=== PATIENT | male | born 1975 | race Caucasian/White ===

== ENCOUNTER 2016-09-15 06:23 | Emergency (ER) | payer OTHER ==
[2016-09-15 07:47] LABS: BASOPHIL % 0.8 % (0-2)
[2016-09-15 07:49] LABS: UA SPECIFIC GRAVITY 1.015 (1.005-1.035); microscopic required? YES; urine erythrocyte NEGATIVE (NEGATIVE)
[2016-09-15 07:56] LABS: CALCIUM 9.2 mg/dL (8.5-10.1); CARBON DIOXIDE 27.5 mmol/L (21-32); CHLORIDE SERUM 95 mmol/L (98-107); CREATININE SERUM 0.9 mg/dL (0.7-1.3); GFR1 > 60 mL/min; GLUCOSE SERUM 112 mg/dL (74-106); POTASSIUM SERUM 3.5 mmol/L (3.5-5.1); SODIUM SERUM 131 mmol/L (136-145)
[2016-09-15 08:03] LABS: ALBUMIN 3.6 g/dL (3.4-5.0); ALKALINE PHOSPHATASE 208 U/L (46-116); ALT/SGPT 233 U/L (16-63); AMYLASE 40 U/L (25-115); AST/SGOT 339 U/L (15-37); BILIRUBIN TOTAL 3.6 mg/dL (0.20-1.00); HDL CHOLESTEROL 45 mg/dL (40-60); LIPASE 195 IU/L (73-393); MAGNESIUM 1.8 mg/dL (1.8-2.4)
[2016-09-15 08:06] LABS: CHOLESTEROL 320 mg/dL (<200)
[2016-09-15 08:07] LABS: AMPHETAMINE QUAL UR NONE DETECTED (NEG <=1000)
[2016-09-15 08:23] LABS: PLATELET COUNT 157 x10^3mcL (130-400)
[2016-09-15 10:11] VITALS: BP 107/84
== END 2016-09-15 10:11 | disposition home or self-care (01) ==
LOC: ED 06:23
PROVIDERS: Emergency Medicine
DX: R17 Unspecified jaundice (principal); F10.20 Alcohol dependence, uncomplicated; I10 Essential (primary) hypertension; E78.00 Pure hypercholesterolemia, unspecified; E87.1 Hypo-osmolality and hyponatremia
CPT/HCPCS: 80307; 83880; G0480; J2060; J3411; J3475; J3490; J7030; Q0092

== ENCOUNTER 2017-09-24 20:22 | Inpatient (IN) | payer OTHER ==
[~2017-09-24] VITALS: Ht 175.3 cm; Wt 98.0 kg
[2017-09-24 21:42] LABS: BASOPHIL % 1.2 % (0-2); RED CELL DISTRIBUTION WIDTH 13.9 % (11.5-14.5)
[2017-09-24 21:43] LABS: PLATELET COUNT 88 x10^3mcL (130-400)
[2017-09-24 21:53] LABS: AMPHETAMINE QUAL UR NONE DETECTED (NEG <=1000)
[2017-09-24 21:59] LABS: CALCIUM 8.3 mg/dL (8.5-10.1); CARBON DIOXIDE 27.1 mmol/L (21-32); CHLORIDE SERUM 104 mmol/L (98-107); CREATININE SERUM 0.7 mg/dL (0.7-1.3); GFR1 > 60 mL/min; GLUCOSE SERUM 136 mg/dL (74-106); POTASSIUM SERUM 3.5 mmol/L (3.5-5.1); SODIUM SERUM 142 mmol/L (136-145)
[2017-09-24 22:04] LABS: ALBUMIN 3.9 g/dL (3.4-5.0); ALKALINE PHOSPHATASE 62 U/L (46-116); ALT/SGPT 98 U/L (16-63); AST/SGOT 97 U/L (15-37); BILIRUBIN TOTAL 0.2 mg/dL (0.20-1.00); TOTAL PROTEIN, SERUM 7.5 g/dL (6.4-8.2)
[2017-09-24 23:20] VITALS: BP 114/71
[2017-09-25 00:19] LABS: PHOSPHOROUS 3.2 mg/dL (2.5-4.9)
[2017-09-25 00:59] LABS: UA SPECIFIC GRAVITY 1.015 (1.005-1.035); microscopic required? YES; urine erythrocyte TRACE (NEGATIVE)
[2017-09-25 04:48] VITALS: BP 90/54
[2017-09-25 07:47] LABS: BASOPHIL % 1.2 % (0-2); RED CELL DISTRIBUTION WIDTH 13.9 % (11.5-14.5)
[2017-09-25 08:01] LABS: CARBON DIOXIDE 25.3 mmol/L (21-32); CHLORIDE SERUM 107 mmol/L (98-107); CREATININE SERUM 0.6 mg/dL (0.7-1.3); GFR1 > 60 mL/min; GLUCOSE SERUM 80 mg/dL (74-106); POTASSIUM SERUM 3.9 mmol/L (3.5-5.1); SODIUM SERUM 144 mmol/L (136-145)
[2017-09-25 08:17] VITALS: BP 92/53
[2017-09-25 08:21] LABS: PLATELET COUNT 77 x10^3mcL (130-400)
[2017-09-25 08:51] VITALS: Ht 175.3 cm; Wt 98.0 kg
[2017-09-25 12:46] VITALS: BP 125/75
[2017-09-25 17:08] VITALS: BP 127/79
[2017-09-25 20:58] VITALS: BP 132/76
[2017-09-26 05:50] VITALS: BP 132/73
[2017-09-26 07:43] LABS: CARBON DIOXIDE 25.3 mmol/L (21-32); CHLORIDE SERUM 100 mmol/L (98-107); CREATININE SERUM 0.6 mg/dL (0.7-1.3); GFR1 > 60 mL/min; GLUCOSE SERUM 84 mg/dL (74-106); POTASSIUM SERUM 3.4 mmol/L (3.5-5.1); SODIUM SERUM 136 mmol/L (136-145)
[2017-09-26 08:07] LABS: BASOPHIL % 1.1 % (0-2); RED CELL DISTRIBUTION WIDTH 13.5 % (11.5-14.5)
[2017-09-26 08:14] LABS: PLATELET COUNT 82 x10^3mcL (130-400)
[2017-09-26 10:11] VITALS: BP 137/80
[2017-09-26] MEDS ORDERED: LEVAQUIN750 MG PO (12:18)
[2017-09-26] MEDS ORDERED: LAC PO (12:19)
[2017-09-26] MEDS ORDERED: LIB25 PO (12:21)
[2017-09-26] MEDS ORDERED: PROZ20 PO (12:22)
[2017-09-26] MEDS ORDERED: THI100 PO (12:23)
[2017-09-26] MEDS ORDERED: FOL1 PO (12:23)
[2017-09-26] MEDS ORDERED: THERAGRAN-M1 TA4 PO (12:24)
[2017-09-26 12:57] VITALS: BP 137/80
[2017-09-26 13:59] VITALS: BP 143/83
== END 2017-09-26 13:55 | disposition home or self-care (01) | DRG 775 ==
LOC: ED 20:22 → DU 22:26
PROVIDERS: Emergency Medicine; Student in an Organized Health Care Education/Training Program
DX: F10.229 Alcohol dependence with intoxication, unspecified (principal); F10.239 Alcohol dependence with withdrawal, unspecified; G92 Toxic encephalopathy; E83.51 Hypocalcemia; D69.6 Thrombocytopenia, unspecified; I10 Essential (primary) hypertension; Y90.9 Presence of alcohol in blood, level not specified; N39.0 Urinary tract infection, site not specified; E78.00 Pure hypercholesterolemia, unspecified; E87.6 Hypokalemia; F32.9 Major depressive disorder, single episode, unspecified; Z91.14 Patient's other noncompliance with medication regimen; Z80.3 Family history of malignant neoplasm of breast
CPT/HCPCS: G0480; J1885; J1956; J7030; Q0092

== ENCOUNTER 2018-12-27 23:33 | Inpatient (IN) | payer OTHER ==
[~2018-12-27] VITALS: Ht 175.3 cm; Wt 90.7 kg
[~2018-12-27 23:33] MED LIST: FOL1 PO; LAC PO; LEVAQUIN750 MG PO; LIB25 PO; PROZ20 PO; THERAGRAN-M1 TA4 PO; THI100 PO
--- NOTE | 2018-12-27 23:52 | NUR ---
PT BROUGHT TO ED BY [facility] AND [facility] S/O NEW ONSET SEIZURE. PER MEDICS, PT WAS AT HOME WHEN HIS MOTHER HEARD A LOUD "THUMP" WENT INTO THE ROOM TO FIND THE PATIENT ON THE FLOOR EXPERIENCING TONIC CLONIC MOVEMENT. PT WAS POST ICTAL WHEN MEDICS ARRIVED, AOX3 AND GCS OF 14. PT REMAINS AOX3 AT THIS TIME. PT UNABLE TO GIVE THE CORRECT MONTH AND YEAR, PT REORIENTED APPROPRIATELY. EKG PERFORMED BY MEDICS SHOWED SINUS TACHYCARDIA WITH HR IN 150'S. PT PLACED ON FULL CM, PT DENIES PAIN AT THIS TIME.
--- NOTE | 2018-12-27 23:53 | NUR ---
PT NOTED WITH TREMORS TO FACE AND EXTREMITIES. PT STATES THAT HE USUALLY DRINKS X4-5 TALL CANS OF BEER A DAY AND TODAY HE ONLY DRANK 1. PT STATES "I JUST WANT TO STOP" WHEN ASKED WHY HE DRANK LESS TODAY.
--- NOTE | 2018-12-28 00:25 | NUR ---
PT ASSISTED TO BEDSIDE COMMODE DUE TO PT REQUEST TO USE RESTROOM. PT EXPERIENCED A LIQUID BRIGHT GREEN BOWEL MOVEMENT. PT CLEANED AND ASSISTED BACK INTO BED.
--- NOTE | 2018-12-28 00:40 | NUR ---
ADMINISTERED 4MG IVP ZOFRAN FOR EPISODE OF VOMITING PER DR PENN VERBAL ORDER.
--- NOTE | 2018-12-28 01:15 | NUR ---
PT MEDICATED PER ORDER, PT VERBALIZED UNDERSTANDING OF MEDICATION PRIOR TO ADMINISTRATION. PT IS AWAKE AND ALERT, ANSWERING QUESTION APPROPRIATELY, RESP E/U, WILL CONTINUE TO MONITOR. SEIZURE PRECAUTIONS IN PLACE.
[2018-12-28 01:36] LABS: BASOPHIL % 0.2 % (0-2); RED CELL DISTRIBUTION WIDTH 14.2 % (11.5-14.5)
[2018-12-28 01:38] LABS: PLATELET COUNT 39 x10^3mcL (130-400)
[2018-12-28 01:47] LABS: CALCIUM 8.6 mg/dL (8.5-10.1); CARBON DIOXIDE 24.4 mmol/L (21-32); CHLORIDE SERUM 101 mmol/L (98-107); CREATININE SERUM 0.7 mg/dL (0.7-1.3); GFR1 > 60 mL/min; GLUCOSE SERUM 130 mg/dL (74-106); POTASSIUM SERUM 3.9 mmol/L (3.5-5.1); SODIUM SERUM 140 mmol/L (136-145)
[2018-12-28 01:52] LABS: ALBUMIN 3.8 g/dL (3.4-5.0); ALKALINE PHOSPHATASE 116 U/L (46-116); ALT/SGPT 158 U/L (16-63); AST/SGOT 233 U/L (15-37); BILIRUBIN TOTAL 0.99 mg/dL (0.20-1.00); MAGNESIUM 1.5 mg/dL (1.8-2.4); PHOSPHOROUS 2.6 mg/dL (2.5-4.9); TOTAL PROTEIN, SERUM 7.8 g/dL (6.4-8.2)
--- NOTE | 2018-12-28 02:16 | NUR ---
PT RESTING WITH EYES CLOSED AT THIS TIME. RESP EVEN AND UNLABORED, CHEST RISE AND FALL NOTED, NO ACUTE DISTRESS NOTED. PT ON FULL CM IN VIEW OF NURSE'S STATION. TREMORS HAVE DECREASED AT THIS TIME.
--- NOTE | 2018-12-28 02:53 | NUR ---
PT DENIES TAKING HOME MEDICATIONS.
[2018-12-28 02:55] LABS: microscopic required? YES; urine erythrocyte 2+ (NEGATIVE)
[2018-12-28 02:56] LABS: AMPHETAMINE QUAL UR NONE DETECTED (See below)
[2018-12-28 03:03] LABS: CHOLESTEROL/HDL RATIO 1.6
--- NOTE | 2018-12-28 03:03 | NUR ---
PT REPORT CALLED TO CHRISTIAN SEE TO ASSUME PT CARE.
[2018-12-28 03:08] LABS: T3 TOTAL 0.91 ng/mL
[2018-12-28 03:14] LABS: FREE T4 0.72 ng/dL (0.76-1.46)
--- NOTE | 2018-12-28 03:20 | NUR ---
PT TRANSFERRED TO [facility] BY [facility] BY MYSELF AND [facility] EMT. PT ON FULL CM FOR TRANSPORT. PT ACCEPTED BY CHRISTIAN SEE TO ASSUME PT CARE. PT AOX3 RESP EVEN AND UNLABORED, NO ACUTE DISTRESS NOTED.
[2018-12-28 03:29] VITALS: BP 123/84
[2018-12-28 04:08] LABS: FREE THYROXINE INDEX 1.3 ug/dL (1.4-4.5); T4(THYROXINE) 3.6 ug/dL (4.7-13.3)
--- NOTE | 2018-12-28 04:08 | NUR ---
RECEIVED FROM ER DX SEIZURE AND ACUTE ALCOHOL WITHDRAWAL, FACILITATED TO ASSIGNED BED, ADMISSION CARE PROT RENTERED, ORIENTED TO ROOM SET UP, PT AWAKE DROWSY VERBAL ANSWERS SOME QUESTION APPROPRIATELY, DENIES PAIN, ADMISSION ASSESSMENT DONE, MD AWARE OF THE ADMISSION WITH ORDERS, IVF NS STARTED ORDERED, 150CC/HR IV ACCESS @ RW PATENT NON INFIL, SZ PREC POSTED PADS AT SIDERAILS APPLIED, SCD'S FOR DVT PROPHYLAXIS, PT DENIES PAIN, HOOKED TO TELE #1 HR >120'S ASYMTOMATIC, WILL CONT TO MONITOR.
--- NOTE | 2018-12-28 04:14 | NUR ---
MRSA SCREEN INITIATED, SWAB BOTH NARES, SPEC SENT TO LAB.
--- NOTE | 2018-12-28 04:41 | NUR ---
MG RIDER 2GMS INFUSING FOR MG LEVEL OF 1.5, PT SLEEPING AT THIS TIME.
--- NOTE | 2018-12-28 06:28 | NUR ---
PT AWAKE COOPERATIVE AND VERBAL, HAS FINE TREMORS BUE, NO SEIZURE ACTIVITY, DENIES PAIN, DUE MEDS GIVEN, IVF INFUSING WELL, WILL CONT TO MONITOR AND WILL ENDORSE TO INCOMING SHIFT FOR F/U CARE.
[2018-12-28 06:35] LABS: CALCIUM 8.5 mg/dL (8.5-10.1); CARBON DIOXIDE 22.9 mmol/L (21-32); CHLORIDE SERUM 103 mmol/L (98-107); CREATININE SERUM 0.5 mg/dL (0.7-1.3); GFR1 > 60 mL/min; GLUCOSE SERUM 89 mg/dL (74-106); MAGNESIUM 2.2 mg/dL (1.8-2.4); PHOSPHOROUS 2.8 mg/dL (2.5-4.9); POTASSIUM SERUM 3.5 mmol/L (3.5-5.1); SODIUM SERUM 141 mmol/L (136-145)
--- NOTE | 2018-12-28 06:36 | NUR ---
DR WARD AWARE PT DOESNT HAVE DIET ORDER, HR WENT UP TO 150'S WHEN PT TRIED TO GET OOB ASKING FOR WATER, ASYMTOMATIC, EKG COMPLETED, PT DENIES PAIN AT THIS TIME, CONT TO MONITOR.
[2018-12-28 07:16] LABS: RED CELL DISTRIBUTION WIDTH 13.9 % (11.5-14.5)
--- NOTE | 2018-12-28 07:51 | NUR ---
RECEIVED PATIENT FROM MAYI BLEDSOE. PATIENT IN BED RESTING, A/OX4. NO COMPLAINTS OF PAIN OR DIZZINESS BUT PATIENT HAS SLIGHT TREMORS IN HANDS. STATES THAT HE FEELS COLD. EXTRA BLANKET GIVEN TO PATIENT. NO SIGNS OF SEIZURE ACTIVITY, WILL CONTINUE TO MONITOR FOR DTS. CALL LIGHT IN REACH AT THIS TIME.
[2018-12-28 08:20] VITALS: BP 132/91
[2018-12-28 11:46] LABS: BAND NEUTROPHIL 1 % (0-10); BASOPHIL 0 % (0-2); MONOCYTE 6 % (0-7); SEGMENTED NEUTROPHILS 86 % (37-75)
[2018-12-28 11:47] LABS: PLATELET MORPHOLOGY PLATELETS DECREASED; rbc morphology (normal/abnorm) ABNORMAL (NORMAL)
--- NOTE | 2018-12-28 12:00 | NUR ---
PATIENT WITH PT BOB. STATES PATIENT ABLE TO AMBULATE UP TO 200 FT. NOTIFIED TAHT PATIENT HR UP TO 150s. PATIENT DENIES CHEST PAIN, SEATED UP TO BED. CALL LIGHT IN REACH,
[2018-12-28 12:44] VITALS: BP 117/84
--- NOTE | 2018-12-28 13:12 | NUR ---
PATIENT SEATED IN BED, EATING LUNCH TRAY. [facility] STATES PATIENT HR UP TO 150s DURING MEAL. NO SIGNS OF SZ ACTIVITY AT THIS TIME. WILL CONTINUE TO MONITOR HR. CALL LIGHT IN REACH.
--- NOTE | 2018-12-28 14:41 | NUR ---
PATIENT HR ELEVATED DURING AMBULATION AND GOING UP TO BEDSIDE COMMODE. PATIENT DENIES ANY CHEST PAIN OR DISCOMFORT, DENIES DIZZINESS, SS WARM PINK & DRY. SCHEDULED PO LIBRIUM ADMINISTERED. WILL NOTIFY DR WARD AND CONTINUE TO MONITOR. CALL LIGHT IN REACH AT THIS TIME, BED ALARM ON.
[2018-12-28 14:43] LABS: PLATELET COUNT 33 x10^3mcL (130-400)
--- NOTE | 2018-12-28 14:49 | NUR ---
DR WARD IN TO CHECK ON PATIENT ABOUT TACHYCARDIA. DR WARD STATES TO GIVE PATIENT PRN ATIVAN PO. CONTINUES TO DENY CHEST PAIN OR DIZZINESS. CALL LIGHT IN REACH.
[2018-12-28 16:55] VITALS: BP 116/86
--- NOTE | 2018-12-28 18:02 | NUR ---
PATIENT HR HAS FINALLY NORMALIZED. NOW AT 90-92 BPM. PATIENT IN BED SLEEPING AT THIS TIME. NO SIGNS OF SZ ACTIVITY. WILL ENDORSE TO ONCOMING NURSE. CALL LIGHT IN REACH.
--- NOTE | 2018-12-28 19:38 | NUR ---
PT RECIEVED FROM DAY NURSE. PT RESTING COMFORTABLY IN BED. DENIES PAIN AT THIS TIME. PT ON TELE #1, SINUS TACH. NO S/S OF N/V OR DIZZINESS. NO SOB ON RA. ACTIVE BOWEL SOUNDS, LAST BM 12/28. RW IV, INTACT AND INFUSING. CALL LIGHT WITHIN REACH. BED AT LOWEST POSITION. WILL CONTINUE TO MONITOR.
[2018-12-28 20:57] VITALS: BP 141/87
--- NOTE | 2018-12-28 22:33 | NUR ---
IV REMOVED BY PT. SKIN DRY AND INTACT. NEW IV PLACED IN LFA. FLUIDS RESUMED AT 150 ML/HR.
--- NOTE | 2018-12-28 23:44 | NUR ---
PT. SITTING UP IN BED. HR 190, GAVE ATIVAN PRN. PT PULLED OFF CM PATCHES. REPLACED PATCHES AND TELE MONITOR. PT IS NOW TELE NUMBER 27. NO SOB, ON RA. DENIES DIZZINESS, N/V, OR PALPATATIONS. CALL LIGHT WITHIN REACH. BED AT LOWEST POSTION. WILL CONTINUE TO MONITOR.
--- NOTE | 2018-12-29 00:10 | NUR ---
PT CONFUSED, REMOVED IV. UNSTEADY GAIT. HR 177. PAGED DR MADISON TO NOTIFY OF CHANGE IN STATUS. WILL MONITOR AND AWAIT RETURN CALL FROM
--- NOTE | 2018-12-29 01:04 | NUR ---
DR. MADISON REPORTED TO BEDSIDE. NEW ATIVAN ORDERS PLACED. NEW IV PLACED ON RIGHT FOREARM. PT REMAINS CONFUSED AND UNSTEADY. BED ALARM ACTIVE. BED AT LOWEST POSITION. WILL CONTINUE TO MONITOR.
--- NOTE | 2018-12-29 03:21 | NUR ---
PT. HALLUCINATING, "I SEE MY FRIENDS AND THEY'RE TELLING ME TO GO.". HR MAINTAINED IN THE 130S-140S. MADE AWARE. BED ALARM ACTIVE. CALL LIGHT WITHIN REACH. BED IN LOWEST POSITION. WILL CONTINUE TO MONITOR.
--- NOTE | 2018-12-29 03:39 | NUR ---
PT. OUT OF BED, CONTINUING TO HALLUCINATE. HR IN THE 140S. DR. MADISON AT BEDSIDE. PT. TO BE TRANSFERED TO ICU PER DRS ORDERS.
[2018-12-29 04:00] VITALS: BP 127/86; BP 148/80
--- NOTE | 2018-12-29 04:00 | NUR ---
RECEIVED PT TRANSFER FROM [address] [place] [id number], RECEIVED REPORT FROM MAYI NAVARRETE AND MIKA SEE, ACCOMPANIED BY THEM. PT TRANSFERRED TO ICU BED 5, ATTACHED TO FULL MEDICAL STAFF SERVICES COORDINATOR, AND CONTINUOUS PULSE OXIMETRY. RECEIVED PT AOX4 ABLE TO RESPOND TO COMMANDS AND MAKE NEEDS KNOWN, PUPILS 4MM BRISK RESPONSE TO LIGHT B/L, SPEECH CLEAR. LUNG SOUDNS CLEAR B/L, CHEST RISE/FALL SYMMETRIC, E/U BREATHING, NO ACUTE RESP DISTRESS, DENIES SOB. TRACHEA MIDLINE, NO DRAINAGE TO EENT. S1/S2 SOUNDS HEARD, CHEST WALL STABLE, PT DENIES CHEST PAIN. ACTIVE BOWEL SOUNDS X4 QUADRANTS, ABD SOFT/ROUND, NO BM. PT ABLE TO VOID, CLEAR YELLOW URINE, USES BEDSIDE URINAL. NO PENILE DISCHARGE NOTED, REDNESS NOTED TO SCROTUM AND INNER THIGHS NEAR PERIAREA. SKIN COLOR CONSISTENT WITH ETHNICITY, PULSES MODERATE X4 EXTREMITIES, CAP REFILL <3 SECONDS X4 EXTREMITES. NO EDEMA. SKIN WARM/DRY TO TOUCH, IV 22GAUGE TO RIGHT FOREARM, SALINE LOCKED, PATENT, NO S/S OF INFILTRATION, DRESSING CDI. PT IN CLEAR VIEW OF NURSING STATION, PT DENIES ANY HALLUCINATIONS, HAS NOTED TREMORS TO HANDS, COOPERATIVE WITH CARE BUT APPEARS TENSE AT THIS TIME. BED AT LOWEST SETTING, CALL LIGHT WITHIN REACH, SZ PADS IN PLACE, WILL CONT TO MONITOR.
--- NOTE | 2018-12-29 04:06 | NUR ---
NS IV INTIATED @ 150 ML/HR
--- NOTE | 2018-12-29 05:10 | NUR ---
PT STATING HE WAS TALKING TO A PERSON NAMED YULISA INSIDE THE ROOM. REORIENTED PT AT THIS TIME ON HOSPITAL STAY AND THAT NO ONE IS IN THE ROOM.
[2018-12-29 05:35] LABS: BASOPHIL % 0.3 % (0-2)
[2018-12-29 05:39] LABS: ALBUMIN 3.5 g/dL (3.4-5.0); ALKALINE PHOSPHATASE 109 U/L (46-116); ALT/SGPT 111 U/L (16-63); AST/SGOT 120 U/L (15-37); BILIRUBIN TOTAL 1.38 mg/dL (0.20-1.00); CALCIUM 9.2 mg/dL (8.5-10.1); CARBON DIOXIDE 25.4 mmol/L (21-32); CHLORIDE SERUM 100 mmol/L (98-107); CREATININE SERUM 0.6 mg/dL (0.7-1.3); GFR1 > 60 mL/min; GLUCOSE SERUM 79 mg/dL (74-106); MAGNESIUM 1.9 mg/dL (1.8-2.4); PHOSPHOROUS 2.1 mg/dL (2.5-4.9); POTASSIUM SERUM 3.2 mmol/L (3.5-5.1); SODIUM SERUM 139 mmol/L (136-145); TOTAL PROTEIN, SERUM 7.2 g/dL (6.4-8.2)
[2018-12-29 05:43] LABS: PLATELET COUNT 32 x10^3mcL (130-400)
--- NOTE | 2018-12-29 06:05 | NUR ---
PT REMOVING EQUIPMENT AND GOWN AT THIS TIME. EDUCATED PT ON HOSPITAL STAY AND EQUIPMENT FOR HOSPITAL USE.
--- NOTE | 2018-12-29 06:15 | NUR ---
PT TENSE AT THIS TIME, STATING "I NEED TO GO HOME AND GET MY KEYS", REORIENTED PATIENT ON HOSPITAL STAY AND PLAN OF CARE, PT VERBALIZES "OK".
--- NOTE | 2018-12-29 06:20 | NUR ---
PT ATTEMPTING TO JUMP OUT OF BED, REMOVING EQUIPMENT AND GOWN AT THIS TIME. PT STATING "I HAVE TO PUT MY CLOTHES BACK ON AND GO HOME". EDUCATED PT ON HOSPITAL STAY AND REORIENTED PT. PT APPEARS TENSE AND UNCOOPERATIVE WITH STAFF ON GOING BACK TO BED.
--- NOTE | 2018-12-29 06:30 | NUR ---
PT BEING AGGRESSIVE WITH NURSING STAFF, STATING "I HAVE TO GO HOME AND GET MY STUFF AND MY KEYS" AND ATTEMPTING TO GET OUT OF BED. REORIENTED PATIENT ON HOSPITAL STAY AND POC. PT UNCOOPERATIVE WITH GOING BACK INTO BED. DR. MADISON AT BEDSIDE, OK TO INITIATE RESTRAINTS AT THIS TIME AND MEDICATION ORDERED AND WILL BE GIVEN PER EMAR.
--- NOTE | 2018-12-29 07:10 | NUR ---
GAVE REPORT TO SHABBIR RN, MAYI PADILLA. UPDATES PROVIDED, QUESTIONS ANSWERED.
[2018-12-29 07:45] VITALS: BP 131/95
[2018-12-29 07:46] VITALS: Ht 175.3 cm; Wt 90.7 kg
--- NOTE | 2018-12-29 08:40 | NUR ---
ATIVAN 4MG IVP GIVEN FOR AGITATION AND HR 137. RESP EVEN AND UNLABORED. NO RESP DISTRESS NOTED. PT DENIES CHEST PAIN OR PALPITATIONS. HOB 30 DEGREES. BUE SOFT RESTRAINTS IN PLACE, SITE WNL, NO REDNESS, SWELLING, SKIN INTACT, CAP REFILL < 3 SECONDS. 2 FINGERS SPACE NOTED. DUE MEDS GIVEN CRUSHED. WILL CONTINUE TO MONITOR.
--- NOTE | 2018-12-29 08:52 | NUR ---
DR. WARD MADE AWARE PATIENT'S CARDIAC RHYTHM LOOKS A. FIB WITH RVR WITH RATE RANGING FROM 120-180'S. EKG TO BE ORDERED. NIBP STABLE AT 120/66, MAP 96. PATIENT IS CURRENTLY SLEEPING AT THIS TIME.
--- NOTE | 2018-12-29 08:59 | NUR ---
PATIENT RESTLESS, AND ATTEMPTING TO GET OUT OF BED AND RESTRAINTS. PATIENT STATED "I AM TRYING TO FIGURE OUT WHAT IS GOING ON". PATIENT EDUCATED ON PERSON, PLACE AND TIME. WILL CONTINUE TO MONITOR.
--- NOTE | 2018-12-29 09:03 | NUR ---
PATIENT RESTLESS, AND ATTEMPTING TO GET OUT OF BED AND RESTRAINTS. PATIENT STATED " I AM TRYING TO FIGURE OUT WHAT IS GOING ON". PATIENT REORIENTED TO PERSON, PLACE AND TIME. WILL CONTINUE TO MONITOR.
--- NOTE | 2018-12-29 09:18 | NUR ---
PATIENT URINATED IN THE BED. LINENS CHANGED, PATIENT CLEANSED. WILL CONITNUE TO MONITOR.
--- NOTE | 2018-12-29 09:40 | NUR ---
DR. TAO AND MEDICAL TEAM MET WITH PT AND DISCUSSED POC. PT CONFUSED AND UNABLE TO PARTICIPATE. REPORTED TO DR. WARD k+ = 3/2 AND PHOS = 2.1. DR. WARD REVIEWED PT'S RECENT EKG AND STATED AFIB IS DUE TO PT BEING IN WITHDRAWELS. NO NEW ORDERS AT THIS TIME.
--- NOTE | 2018-12-29 09:45 | NUR ---
PATIENT ROUNDS WITH DR. TAO AND RESIDENTS. CHARGE NURSE AND PRIMARY NURSE AT BEDSIDE. UPDATES PROVIDED AND POC DISCUSSED.
--- NOTE | 2018-12-29 10:01 | NUR ---
ATIVAN 4MG IVP FOR ANXIETY AND HR 140. RESP EVEN AND UNLABORED. NO RESP DISTRESS NOTED. REMAINS ON R/A. PT ABLE TO REMOVE HAND FROM SOFT WRIST RESTRAINTS. VELCO RESTRAINT APPLIED WITH NOTED 2 FINGER LENGTH BETWEEN RESTRAINT AND SKIN. SKIN BELOW RESTRAINT NOTED TO BE INTACT WITH NO REDNESS OR SWELLING NOTED. CAP REFILL < 3 SECS. PT NOTED WITH FREQUENT PERIODS OF INCONTINENCE OF URINE. CONDOM CATH APPLIED. PT TOLERATED PROCEDURE WELL. HOB 30 DEGREES. WILL CONTINUE TO MONITOR.
--- NOTE | 2018-12-29 10:22 | NUR ---
PT IS AAAOX1 TO SELF, CONFUSED, HALLUCINATING. VERBALLY RESPONSIVE. CAN NOT MAKE NEEDS KNOWN. ABLE TO FOLLOW SIMPLE COMMANDS. UNABLE TO ASSESS FOR H/A OR DIZZINESS. PERRLA = 4MM. RESP EVEN AND UNLABORED. LUNG SOUNDS CTA BILATERALLY. ON R/A. TELE [address] READING SINUS TACH. DENIES CHEST PAIN OR PALPITATIONS. ABDOMEN SOFT, NONDISTENDED, NONTENDER. BOWEL SOUNDS ACTIVE X4. NO N/V NOTED. PT REFUSED TO EAT BREAKFAST. PERIPHERAL PULSES PALPABLE X4. NO EDEMA NOTED. CAP REFILL <3. SKIN CDI AND CONSISTENT WITH ETHNICITY. PT ON BUE SOFT WRIST RESTRAINTS WITH 2 FINGER SPACES BETWEEN PT'S WRIST AND RESTRAINT. SITE WNL. NO REDNESS OR SWELLING. SKIN INTACT. CAP REFILL <3. IVF RUNNING TO RFA, SITE WNL, NO S/S OF INFECTION OR INFILTRATION NOTED. HOB 30 DEGREES. SEIZURE PRECAUTIONS IN PLACE. FALL PRECAUTIONS MAINTAINED. BED IN LOWEST POSITION. CALL LIGHT WITHIN REACH. WILL CONTINUE TO MONITOR.
[2018-12-29 12:20] VITALS: BP 115/73
--- NOTE | 2018-12-29 13:15 | NUR ---
ATIVAN 4MG IVP GIVEN FOR AGITATION AND HR 181. RESP EVEN AND UNLABORED. NO RESP DISTRESS. PT AAOX1, CONFUSED. DOES NOT RESPOND TO QUESTIONS APPROPRIATELY. DUE MEDS GIVEN CRUSHED. PT REFUSED LUNCH. PT ACCEPTED SIPS OF WATER. VELCRO WRIST RESTRAINTS IN PLACE TO BUE. SITE WNL, NO REDNESS OR SWELLING. SKIN INTACT. CAP REFILL <3. WILL CONTINUE TO MONITOR.
--- NOTE | 2018-12-29 13:42 | NUR ---
PAGED DR. WARD TO REPORT PT'S HR TRENDING BETWEEN 135 - 180s. AWAITING CALL BACK.
--- NOTE | 2018-12-29 13:45 | NUR ---
REPORTED TO DR. WARD PT HR TRENDING AT 140-180s. DR. WARD STATED HE WILL ORDER A CARDIZEM IVP.
--- NOTE | 2018-12-29 14:15 | NUR ---
DILTIAZEM 10MG IVP GIVEN FOR INCREASED HR 130-180s. PT HR 160 AT THIS TIME. WILL CONTINUE TO MONITOR.
--- NOTE | 2018-12-29 14:40 | NUR ---
PT GIVEN CARDIZEM, HR TRENDING IN 140'S. PT DENIES C/P. WILL CONTINUE TO MONITOR.
--- NOTE | 2018-12-29 17:25 | NUR ---
REPORTED TO DR. WARD THAT THE PT HAS PERIANAL AND LOWER BUTTOCKS REDNESS. DR. WARD STATED HE WILL ORDER NYSTATIN FOR THE PT. PT MADE AWARE OF NEW ORDER.
--- NOTE | 2018-12-29 17:50 | NUR ---
CARDIZEM GIVEN AT THIS TIME. SEE EMAR. WILL CONTINUE TO MONITOR.
--- NOTE | 2018-12-29 18:20 | NUR ---
PT AAOX2 TO PERSON AND PLACE. PT DENIES C/P AND PRESSURE. MONITOR [address] READING AFIB, HR 154. ATIVAN 4 MG IVP GIVEN FOR AGITATION. RESP EVEN AND UNLABORED. ON R/A. IVF RUNNING TO RFA. SITE WNL. COVERED WITH CDI DRESSING. BUE VELCRO RESTRAINTS IN PLACE WITH 2 FINGER WIDTH SPACE BETWEEN PT. SITE WNL. NO REDNESS OR SWELLING, CAP REFILL <3 SECS. DENIES PAIN AND DISCOMFORT. CALL LIGHT WITHIN REACH. WILL ENDORSE ALL CARE TO NOC RN.
--- NOTE | 2018-12-29 19:05 | NUR ---
GROUP REPORT GIVEN TO MAYI ARROYO, AND MAYI DIXON. ALL QUESTIONS ANSWERED.
[2018-12-29 19:20] VITALS: BP 124/83
--- NOTE | 2018-12-29 19:20 | NUR ---
PT STATING "IM REJI KICK THAT GUYS ASS IN THE CORNER". REORIENTED PATIENT THAT NO ONE IS IN THE ROOM BESIDE MYSELF.
--- NOTE | 2018-12-29 21:10 | NUR ---
PLACED CONDOM CATHETER ON TO PT'S PENIS AT THIS TIME AND BAG DRAINING TO GRAVITY.
--- NOTE | 2018-12-29 21:15 | NUR ---
FOUND CONDOM CATHETER RIPPED AT THIS TIME AND BAG ON FLOOR. DR. HERNÁNDEZ MADE AWARE OF PT INCONTIENT AND MULTIPLE ATTEMPTS OF CONDOM CATHETER PLACED ON PT. PER DR. HERNÁNDEZ OK TO INSERT DOBSON CATETHER.
--- NOTE | 2018-12-29 21:20 | NUR ---
DOBSON CATHETER INITIATED USING STERILE TECHNIQUE. APPROX 300 CC IN THE BAG POST INSERTION. WILL CONTINUE TO MONITOR.
--- NOTE | 2018-12-29 22:38 | NUR ---
PT AGITATED AND RESTLESS ATTEMPTING TO GET OUT OF BED HITTING ARMS AGAINST SIDE RAILS AND KICKING LEGS AGAINST THE BED. PT STATING "GET THESE BAGS OFF OF MY LEGS". REORIENTED PT TO HOSPITAL SETTING. WILL ADMINISTER ATIVAN PER EMAR
[2018-12-29 23:08] VITALS: BP 137/78
[2018-12-30 03:05] VITALS: BP 134/83
--- NOTE | 2018-12-30 04:00 | NUR ---
PT ATTEMPTING TO PULL OUT DOBSON CATHETER, REORIENTATION PROVIDED BUT UNEFFECTIVE. PT REMAINS CONFUSED AND STATING "I SEE CATS IN THIS ROOM". PT HITTING FEET AGAINST BED AND SIDE RAIL, DR. MADISON AT BEDSIDE, PER DR. MADISON OK TO PLACE PT ON 4 POINT RESTRAINTS. BLE RESTRAINTS PLACED ON PATIENT AT THIS TIME, SKIN/PULSE WNL WITH 2 FINGER WIDTH SPACE PROVIDED.
--- NOTE | 2018-12-30 04:44 | NUR ---
HOUSE COORDINATOR CLAIR AT BEDSIDE FOR BLOOD DRAW.
[2018-12-30 05:01] LABS: RED CELL DISTRIBUTION WIDTH 14.1 % (11.5-14.5)
[2018-12-30 05:06] LABS: BASOPHIL % 0 % (0-2); PLATELET COUNT 43 x10^3mcL (130-400)
[2018-12-30 05:26] LABS: ALBUMIN 3.6 g/dL (3.4-5.0); ALKALINE PHOSPHATASE 100 U/L (46-116); ALT/SGPT 108 U/L (16-63); AST/SGOT 126 U/L (15-37); BILIRUBIN TOTAL 1.32 mg/dL (0.20-1.00); CALCIUM 9.4 mg/dL (8.5-10.1); CARBON DIOXIDE 22.5 mmol/L (21-32); CHLORIDE SERUM 104 mmol/L (98-107); CREATININE SERUM 0.8 mg/dL (0.7-1.3); GFR1 > 60 mL/min; GLUCOSE SERUM 67 mg/dL (74-106); MAGNESIUM 1.6 mg/dL (1.8-2.4); PHOSPHOROUS 2.4 mg/dL (2.5-4.9); POTASSIUM SERUM 3.2 mmol/L (3.5-5.1); SODIUM SERUM 142 mmol/L (136-145); TOTAL PROTEIN, SERUM 7.2 g/dL (6.4-8.2)
--- NOTE | 2018-12-30 05:55 | NUR ---
DR. MADISON MADE AWARE OF PT'S POTASSIUM OF 3.2, MAG OF 1.6 AND PTS GLUCOSE OF 67. PROVIDED PATIENT WITH 2 CUPS OF APPLE JUICE BUT PT REFUSES TO EAT FOOD AT THIS TIME. DR. MADISON MADE AWARE.
--- NOTE | 2018-12-30 06:25 | NUR ---
DR. WARD AT BEDSIDE FOR ASSESSMENT. UPDATES PROVIDED, QUESTIONS ANSWERED.
--- NOTE | 2018-12-30 07:10 | NUR ---
GAVE GROUP REPORT TO KWASI RN, ANGELIKA RN AND SAQIB SEE. UPDATES GIVEN, QUESTIONS ANSWERED.
[2018-12-30 07:30] VITALS: BP 130/93; BP 137/95
--- NOTE | 2018-12-30 07:30 | NUR ---
PATIENT AWAKE BUT ORIENTED TO PERSON AND PLAY ONLY WITH CONFUSION AND HALLUCINATION. PATIENT COMMUNICATES WITH SLIGHTLY GARBLED SPEECH BUT FOLLOWS COMMANDS AND MAKES NEEDS KNOWN. IV AT RFA WITH D5 1/2 NS AT 150 ML/HR. TELE # 5 SHOWS SINUS TACHYCARDIA. DOBSON CATH TO GRAVITY DRAINING YELLOW URINE OUTPUT. CALL LIGHT WITHIN REACH. SIDE RAILS UP X3 AND PADDED FOR SEIZURE PRECAUTION. VELCRO RESTRAINTS TO BOTH WRISTS TO PREVENT PATIENT FROM PULLING OUT LINE AND REMOVING MEDICAL EQUIPMENT. WILL RELEASE RESTRAINTS FOR ROM Q2HR/PRN.
--- NOTE | 2018-12-30 09:02 | NUR ---
DR. TAO AND THE TEAM ARE MAKING ROUND TO SEE THE PATIENT.
--- NOTE | 2018-12-30 09:49 | NUR ---
PATIENT REMAINS RESTLESS/AGITATED; ATTEMPTING TO PULL AT LINE AND REMOVE MEDICAL EQUIPMENTS. ATIVAN 4MG IVP IS ADMINISTERED TO THE PATIENT. PATIENT HAS BEEN EDUCATED SEVERAL TIMES THE PURPOSE FOR IV LINE, MONITOR, AND OTHER MEDICAL EQUIPMENTS. COMFORT HAS BEEN PROVIDED TO THE PATIENT.
[2018-12-30 11:14] VITALS: BP 136/92
--- NOTE | 2018-12-30 12:10 | NUR ---
DR. ESCALONA IN TO SEE THE PATIENT.
--- NOTE | 2018-12-30 12:50 | NUR ---
PATIENT'S GRANDMOTHER BONG AT BEDSIDE TO VISIT WITH PATIENT.
--- NOTE | 2018-12-30 13:16 | NUR ---
PATIENT'S GRANDMOTHER TOOK ALL OF PATIENT'S SOILED BELONGINGS HOME WITH HER AT THIS TIME. GRANDMOTHER ALSO BROUGHT A BAG OF CLEAN CLOTHES WHICH WERE PLACED IN PATIENT'S CLOSET.
[2018-12-30 15:15] VITALS: BP 146/92
--- NOTE | 2018-12-30 19:15 | NUR ---
REPORT RECIEVED FROM MAYI CARNEY. NURSING UPDATES. POC DISCUSSED. SEE SHIFT ASSESSMENT.
--- NOTE | 2018-12-30 19:21 | NUR ---
PATIENT WAS GIVEN A BED BATH; DOBSON CARE HAS BEEN PROVIDED TO THE PATIENT. HEEL PROTECTORS WERE PUT ONTO BOTH HEELS ORDERED TO KEEP SKIN FROM BREAKDOWN. PATIENT RESTLESS/AGITATED MOST OF THE TIMES THROUGHOUT THE SHIFT. REPORT GIVEN TO SHAHRZAD GOOD RN. CONCERNS ADDRESSED.
--- NOTE | 2018-12-30 19:59 | NUR ---
PT W/ AGITATION. ATTEMPTED RELAXING TECHNIQUES TO NO AVAIL. PRN ATIVAN ADMIN (SEE MAR). PT CALMED DOWN. WILL REASSESS.
[2018-12-30 20:08] VITALS: BP 132/100
--- NOTE | 2018-12-30 22:00 | NUR ---
PT RESTING CALMLY IN BED. NO ACUTE CHANGES.
[2018-12-30 23:07] VITALS: BP 154/100
--- NOTE | 2018-12-31 01:49 | NUR ---
PT RESTING CALMLY IN BED. NO ACUTE CHANGES.
--- NOTE | 2018-12-31 02:27 | NUR ---
PT W/ AGITATION. CALMLY MEASURES IMPLEMENTED W/ NO AVAIL. PRN ATIVAN ADM *(SEE MAR)*. WILL REASSESS.
[2018-12-31 03:16] VITALS: BP 164/68
--- NOTE | 2018-12-31 03:55 | NUR ---
PT W/ AGITATION. ATTEMPTING CALMING MEASURES W/ NO SUCCESS. ADM PRN ATIVAN (*SEE MAR*). PT RESTING CALMLY IN BED. WILL REASSESS.
--- NOTE | 2018-12-31 04:42 | NUR ---
PT CLEANED, LINENS CHANGED, NYSTATIN POWDER APPLIED TO PERINEAL/BUTTOCKS AREA. PT TOLERATED WELL.
--- NOTE | 2018-12-31 05:06 | NUR ---
EDI COORDINATOR @ BEDSIDE FOR BLOOD DRAW.
[2018-12-31 05:16] LABS: BASOPHIL % 0.7 % (0-2); RED CELL DISTRIBUTION WIDTH 13.9 % (11.5-14.5)
[2018-12-31 05:17] LABS: PLATELET COUNT 58 x10^3mcL (130-400)
[2018-12-31 05:39] LABS: ALBUMIN 3.5 g/dL (3.4-5.0); ALKALINE PHOSPHATASE 86 U/L (46-116); ALT/SGPT 112 U/L (16-63); AST/SGOT 112 U/L (15-37); BILIRUBIN TOTAL 1.1 mg/dL (0.20-1.00); CALCIUM 9.2 mg/dL (8.5-10.1); CARBON DIOXIDE 26.2 mmol/L (21-32); CHLORIDE SERUM 103 mmol/L (98-107); CREATININE SERUM 0.7 mg/dL (0.7-1.3); GFR1 > 60 mL/min; GLUCOSE SERUM 110 mg/dL (74-106); MAGNESIUM 1.5 mg/dL (1.8-2.4); PHOSPHOROUS 2.1 mg/dL (2.5-4.9); POTASSIUM SERUM 3.1 mmol/L (3.5-5.1); SODIUM SERUM 140 mmol/L (136-145)
--- NOTE | 2018-12-31 05:50 | NUR ---
PT REFUSED ORAL CARE. ENCOURAGED FOR ORAL CARE AND IMPORTANCE. WILL ENDORSE.
--- NOTE | 2018-12-31 06:27 | NUR ---
DR WARD @ BEDSIDE. NURSING UPDATES. POC DISCUSSED. NO NEW ORDERS @ THIS TIME.
--- NOTE | 2018-12-31 06:56 | NUR ---
PAGED DR WARD FOR K+ 3.1 AND MG 1.5. REQUESTED REPLACEMENT, AWAITING ORDERS.
--- NOTE | 2018-12-31 07:51 | NUR ---
PT RECIEVED DROWSY/NOT FOLLOWING COMMANDS, A BIT BELLIGERENT, BUT PT APPEARS STABLE AT THIS TIME, HAVING OBVIOUS BUT MILD TREMORS/PT V/S STABLE, PT IS ORIENTED TO SELF ONLY, REORIENTED TO TIME AND PLACE/PT HAS LEATHER RESTRAINTS IN PLACE, WRISTS NOT RED, PT HAS ROOM IN RESTRAINTS TO MOVE/PT LABS REPORTED TO , MAG 1.5,KA 3.1/AWAIT ORDERS/CANNOT FEED PT BECAUSE HE DOESNT EVEN OPEN MOUTH TO TALK//WILL HOLD SEDATION UNTIL 9AM, THEN WILL TRY LATER TO FED PT AND GIVE MEDS/PT TALKS WITH DELUSIONAL REFERENCES, NOTHING ABOUT WHERE HE IS OR HIS CONDITION//V/S STABLE//MW
--- NOTE | 2018-12-31 08:46 | NUR ---
PT NOW RECALLS NAME OF FACILITY, STATES HAS BEEN HERE MANY TIMES, AFTER REORIENTING, HE REMEMBERS THE DATE NOW ALSO, CONTINUE TO REORIENT HIM, VS STABLE, PT SWALLOWED HIS PO MEDS AND WATER EASILY, NO COUGHING//MW
--- NOTE | 2018-12-31 09:19 | NUR ---
MANUSCRIPTS ARCHIVIST AT BEDSIDE FOR CARDIAC ECHO.
[2018-12-31 10:00] VITALS: BP 131/80; BP 139/80
--- NOTE | 2018-12-31 12:36 | NUR ---
PT CALM, BUT STILL HALLUCINATING ABOUT BEING ROBBED, DISORIENTED TO PLACE AND TIME AGAIN-REORIENTED PT AGAIN/PT DENIES PAIN SOB//VS STABLE THROUGHOUT//MW
[2018-12-31 13:49] VITALS: BP 131/80
--- NOTE | 2018-12-31 15:09 | NUR ---
PATIENT'S BROTHER JESICA ROMAN AT BEDSIDE TO VISIT WITH PATIENT.
[2018-12-31 17:22] VITALS: BP 131/80
--- NOTE | 2018-12-31 19:18 | NUR ---
RECIEVED REPORT FROM MAYI OSPINA. NURSING UPDATES. RECIEVED POC. SEE SHIFT ASSESSMENT.
--- NOTE | 2018-12-31 19:20 | NUR ---
RESTRAINT REMOVED FROM R WRIST. PT INSTRUCTED TO CALL FOR HELP W/ CALL PÉREZ. PT TOLERATED WELL AND WAS IN AGREEMENT. WILL CONT TO MONITOR.
[2018-12-31 19:40] VITALS: BP 92/66
--- NOTE | 2018-12-31 21:25 | NUR ---
PT GIVEN APPLE SAUCE W/ MEDICATIONS. PT TOLERATED POORLY. POOR GROSS/FINE MOTOR SKILLS BUT ABLE TO TOLERATE APPLE SAUCE. PT RESTING CALMLY IN BED.
[2018-12-31 23:12] VITALS: BP 128/83
--- NOTE | 2019-01-01 02:43 | NUR ---
PT RESTING COMFORTABLY. NO ACUTE CHANGES. WILL CONT TO MONITOR.
[2019-01-01 03:25] VITALS: BP 123/76
[2019-01-01 04:44] LABS: BASOPHIL % 0.9 % (0-2); RED CELL DISTRIBUTION WIDTH 13.5 % (11.5-14.5)
[2019-01-01 04:47] LABS: PLATELET COUNT 79 x10^3mcL (130-400)
[2019-01-01 04:59] LABS: ALKALINE PHOSPHATASE 83 U/L (46-116); ALT/SGPT 94 U/L (16-63); AST/SGOT 95 U/L (15-37); BILIRUBIN TOTAL 0.62 mg/dL (0.20-1.00); CALCIUM 9.5 mg/dL (8.5-10.1); CARBON DIOXIDE 25.6 mmol/L (21-32); CHLORIDE SERUM 104 mmol/L (98-107); CREATININE SERUM 0.6 mg/dL (0.7-1.3); GFR1 > 60 mL/min; GLUCOSE SERUM 86 mg/dL (74-106); MAGNESIUM 1.8 mg/dL (1.8-2.4); PHOSPHOROUS 5.6 mg/dL (2.5-4.9); SODIUM SERUM 141 mmol/L (136-145); TOTAL PROTEIN, SERUM 6.6 g/dL (6.4-8.2)
--- NOTE | 2019-01-01 05:01 | NUR ---
PT CLEANED, BED BATH GIVEN, SHEET & GOWN CHANGED. PT PULLED OUT L FA IV NO S/S OF INFECTION/INFILTRATION. PT NOTIFIED NOT TO PULL OUT IV'S AND AGREED. WILL ENDORSE.
[2019-01-01 05:16] LABS: ALBUMIN 3.1 g/dL (3.4-5.0)
[2019-01-01 05:17] LABS: POTASSIUM SERUM 2.9 mmol/L (3.5-5.1)
--- NOTE | 2019-01-01 05:30 | NUR ---
NOTIFIED BY SHANIKA AND PHARMACY K+ 2.9. SHANIKA NOTIFIED DR DODSON OF CRITICAL VALUE. KMEQ W/ LIDOCAINE ORDERED AND AWAITING RECIEVAL FROM PHARMACY FOR REPLACEMENT. WILL ENDORSE.
--- NOTE | 2019-01-01 06:09 | NUR ---
RECEIVED PATIENT FROM ICU VIA WHEEL CHAIR. ACCOMPAINED BY ICU NURSE. PATIENT IS STABLE, ALERT AND ORIENTED X4. PATIENT HAS SLOW BUT CLEAR SPEECH. DOBSON CATH IN PLACE, DRAINING YELLOW URINE. IV TO LAC IS INFUSING D5. 1/2 NS AT 150ML/HR. ON SEIZURE PRECAUTIONS FOR ACUTE ETOH WITHDRAWLS. ON TELE 15 WITH NSR HR 76. BP 117/80, TEMP 98.8, RR17, OXYGEN 99% ON ROOM AIR. PATIENT DENIES OTHER NEEDS AT THIS TIME. SCD'S IN PLACE. BED IN LOW POSITION, CALL LIGHT WITHIN REACH. PATIENT ORIENTED TO ROOM PATIENT VERBALIZED UNDERSTANDING. SAFETY PRECAUTIONS IN PLACE.
--- NOTE | 2019-01-01 06:13 | NUR ---
PT PULLED OUT L FA IV. INSTRUCTED PT NOT TO DO SO. PT VERIFIED. NEW IV PLACED IN R HAND W/ NO NOTICABLE NO PITTING EDEMA TO RUE. R HAND IV FLUSHED AND D1/2NS INTIATED @ 150ML/HR W/ NO S/S OF INFILTRATION WILL ENDORSE.
--- NOTE | 2019-01-01 07:11 | NUR ---
RECEIVED PT'S REPORT FROM LEAVING NURSE. PT REST ON BED, AWAKE, ALERT, ORIENTED TO PERSON, PLACE. PT IS EAING BREAKFAST WITH ASSIST. PT BREATHING ON RA, EVEN, UNLABORED. DOBSON IN PLACE DRAINING VIA GRAVITY. SMALL AMOUNT PINK BLOOD IN URINE. PER REPORT, PT TRIED TO PULL OUT DOBSON CATHETER THIS MORNING. HEEL PROTECTOR BOOTS APPLIED TO BLE. RH IV SITE INFILTRATED. WILL START NEW IV.
--- NOTE | 2019-01-01 07:32 | NUR ---
REPORT GIVEN TO MAYI FARRIS. NURSING UPDATES. POC DISCUSSED. RELIEVED OF CARE OF PT.
--- NOTE | 2019-01-01 08:16 | NUR ---
DR. TAO LEAD MORNING MEDICAL TEAM ASSESS PT.
[2019-01-01 08:35] VITALS: BP 124/93
[2019-01-01 12:39] VITALS: BP 116/69
--- NOTE | 2019-01-01 18:56 | NUR ---
EDNORSED CARE TO SUBSTANCE ABUSE SERVICES DIRECTOR NURSE CINDY.
--- NOTE | 2019-01-01 19:17 | NUR ---
MEDICATION DUE STILL INFUSING. PATIENT EDUCATED ON NEED FOR MEDICATION WELL SDVERSE EFFECTS TO REPORT. PATIENT VERBALIZED UNDERSTANDING OF EDUCATION. CALL LIGHT WITHIN REACH. BED IN LOW POSITION. QUESTIONS AND CONCERNS ADDRESSED. PATIENT DENIES OTHER NEEDS AT THIS TIME. SAFETY PRECAUTIONS IN PLACE.
--- NOTE | 2019-01-01 19:20 | NUR ---
ENDORSED CARE TO SIGNALING DESIGN ENGINEER NURSE CINDY.
--- NOTE | 2019-01-01 19:53 | NUR ---
RECEIVED PATIENT IN BED AWAKE,ALERT WITH PERIODS OF CONFUSION AND NO HALLUCINATION NOTED AT THIS TIME. BREATHING EASYA ND NONLABOR SATTING AT 99% RA. TELE#15 NSR ON MONITOR, NO INDICATION OF CHEST DISCOMFORT NOTED. ABDOMEN ROUND AND NONTENDER WITH ACTIVE BS. IV TO LAC INTACT AND INFUSING WELL. WILL CONTINUE TO MONITOR, CALL LIGHT WITHIN REACH,BED ALARM ON.
[2019-01-01 21:10] VITALS: BP 111/72
--- NOTE | 2019-01-02 01:04 | NUR ---
STILL AWAKE WATCHING TELEVISION. NO SIGN OF DISTRESS NOTED. WILL CONTINUE TO MONITOR.
--- NOTE | 2019-01-02 05:13 | NUR ---
SLEPT FAIRLY CHECKED AT INTERVALS FOR NEEDS AND SAFETY. NO VISUAL HALLUCINATION AND NO SIGN OF SEIZURE NOTED. ALL NEEDS ATTENDED.
[2019-01-02 05:45] VITALS: BP 98/63
[2019-01-02 06:44] LABS: BASOPHIL % 0.4 % (0-2); RED CELL DISTRIBUTION WIDTH 13.6 % (11.5-14.5)
[2019-01-02 06:47] LABS: PLATELET COUNT 102 x10^3mcL (130-400)
[2019-01-02 06:51] LABS: ALKALINE PHOSPHATASE 77 U/L (46-116); ALT/SGPT 73 U/L (16-63); AST/SGOT 63 U/L (15-37); BILIRUBIN TOTAL 0.53 mg/dL (0.20-1.00); CALCIUM 9.6 mg/dL (8.5-10.1); CARBON DIOXIDE 24.9 mmol/L (21-32); CHLORIDE SERUM 104 mmol/L (98-107); CREATININE SERUM 0.6 mg/dL (0.7-1.3); GFR1 > 60 mL/min; GLUCOSE SERUM 83 mg/dL (74-106); MAGNESIUM 1.7 mg/dL (1.8-2.4); POTASSIUM SERUM 3.3 mmol/L (3.5-5.1); SODIUM SERUM 140 mmol/L (136-145); TOTAL PROTEIN, SERUM 6.3 g/dL (6.4-8.2)
[2019-01-02 07:00] LABS: ALBUMIN 2.9 g/dL (3.4-5.0)
[2019-01-02 07:45] VITALS: BP 99/56
--- NOTE | 2019-01-02 07:45 | NUR ---
EYE CONTACT. SLOW RESPONSES TO VERBAL. ORIENTED. BREATHING FREELY ON RA. DENIES ANY PAIN AT THIS TIME. TELE # 15 NSR. HR INCREASES WHEN PT GETS UP TO BR. BED ALARM ON. ENCOURAGED TO U SE CALL LIGHT FOR ANY NEED OR NEEDED ASSIST. BREATHING FREELY ON RA. D5 1/2 NS INFUSING 150 CC HOUR. ROOM CLOSE TO NURSES STATION. BED ALARM ON. SZ PRECAUTIONS IN PLACE. NO SZ NOTED THIS AM.
[2019-01-02 09:14] VITALS: BP 99/56
[2019-01-02 13:05] VITALS: BP 102/63
--- NOTE | 2019-01-02 13:31 | NUR ---
RETURNED TELE # 15 TO TELE STATION. NOW MED SURG PT.
--- NOTE | 2019-01-02 15:00 | NUR ---
DOBSON CARE PROVIDED. PENIS HAS VERY DRY FLAKEY SKIN. ASSISTED PT TO BR.
[2019-01-02 16:43] VITALS: BP 108/72
--- NOTE | 2019-01-02 19:03 | NUR ---
BECOMING MORE ALERT. NO HALLUCINATIONS. MORE STEADY ON FEET. GOOD WATER INTAKE. D51/2 NS 150 CC HOUR. VSS, NO TREMORS OR SZ ACTIVITY. PADDED SIDE RAILS, ROOM NEAR NURSES STATION. BREATHNG FREELY ON RA. NO C/O PAIN. CONTINUES TO HAVE SLOW RESPONSES. CALL LIGHT WITHN REACH. DOBSON DRAINING [place]ST[place] URINE.
[2019-01-02 19:20] VITALS: BP 98/53
--- NOTE | 2019-01-02 19:20 | NUR ---
RECEIVED PT AWAKE ALERT AND VERBALLY RESPONSIVE.DENIES HEADACHE OR DIZZINESS AT THIS TIME.ON SEIZURE PRECAUTION.ON ETOH PROTOCOL.NO WITHDRAWAL SYMPTOMS NOTED.CALM AND COOPERATIVE AT THIS TIME.DENIES CHESTPAIN.BP 98/53 MMHG,HR 76.F/C TO YELLOW COLORED URINE.PADDED RAILS IN PLACED.WILL CONTINUE TO MONITOR.
--- NOTE | 2019-01-03 01:07 | NUR ---
REPORTED K LEVEL 3.3 AND MAG LEVEL 1.7.NEW ORDERS GIVEN AND WILL CARRY OUT.
--- NOTE | 2019-01-03 04:40 | NUR ---
PT SLEPT WELL ALL NIGHT.NO SEIZURE ACTIVITY NOTED.PADDED RAILS IN PLACED.NO EPISODES OF AGITATION NOTED.AMBULATES TO BR WITH SBA AND TOLERATED WELL.ALL NEEDS ATTENDED.WILL CONTINUE TO MONITOR.
[2019-01-03 05:26] VITALS: BP 110/72
[2019-01-03 06:35] LABS: BASOPHIL % 0.8 % (0-2); PLATELET COUNT 146 x10^3mcL (130-400); RED CELL DISTRIBUTION WIDTH 13.6 % (11.5-14.5)
[2019-01-03 06:48] LABS: ALKALINE PHOSPHATASE 69 U/L (46-116); ALT/SGPT 72 U/L (16-63); AST/SGOT 51 U/L (15-37); BILIRUBIN TOTAL 0.5 mg/dL (0.20-1.00); CALCIUM 9.2 mg/dL (8.5-10.1); CARBON DIOXIDE 27.5 mmol/L (21-32); CHLORIDE SERUM 106 mmol/L (98-107); CREATININE SERUM 0.7 mg/dL (0.7-1.3); GFR1 > 60 mL/min; GLUCOSE SERUM 125 mg/dL (74-106); MAGNESIUM 1.5 mg/dL (1.8-2.4); PHOSPHOROUS 3.6 mg/dL (2.5-4.9); SODIUM SERUM 141 mmol/L (136-145); TOTAL PROTEIN, SERUM 6.4 g/dL (6.4-8.2)
--- NOTE | 2019-01-03 07:10 | NUR ---
RECIEVED PT FROM NIGHT NURSE. PT IS LAYING DOWN IN BED WITH HOB UP RESTING WITH EYES CLOSED. PT LOOKS TO BE IN NO ACUTE DISTRESS AT THIS TIME. RESPIRATIONS EVEN AND UNLABORED ON ROOM AIR. IV SITE PATENT WITH NO SIGNS OF ERYTHEMA OR SWELLING WITH IV H/L. DOBSON CATHETER PRESENT DRAINING CLEAR YELLOW URINE. BED IN LOWEST POSITION, CALL LIGHT WITHIN REACH. WILL CONTINUE TO MONITOR.
[2019-01-03 09:03] VITALS: BP 112/73
--- NOTE | 2019-01-03 13:44 | NUR ---
Recommendations: 1. Continue current diet order: Regular
--- NOTE | 2019-01-03 13:44 | NUR ---
Initial Nutrition Assessment: (212-A) KOBI VALLEJO ERIKA 43M Dx: Acute EtOH withdrawal, Seizure PMHx: HTN, EtOH abuse PSHx: None Labs: BG 125 H, BUN 4.0 L, Alb 3.0 L, AST 51 H, ALT 72 H, RBC 3.81 L, HCT 39 L Meds: Colace, Folic Acid, Lopressor, Theragran, Vit B1, Zofran Diet: Regular PO intake since admission: <25% (12/28) Ht: 69in Wt: 200# BMI: 29.5 Bed scale: 90.2 kg (198#) IBW: 160# %IBW: 125% UBW: 200-210# Age: 43 Food Allergies: NKFA Skin: Jaskaran: 15 Edema: None noted GI: Last BM: 01/02 Note (01/03): Nursing trigger received: N/V/D >3days, admit w/ risk Dx. Spoke w/ pt bedside, states eats almost all food on tray. Last noted PO intake was 20%, noted 12/28. Pt w/ no c/o N/V at this time. Pt approrpiate for diet education at this time, provided pt w/ handout and discussed w/ pt on how to eat to manage his alcohol consumption. Problem with: N/V/D/C: None Problems with: Chewing: No Swallowing: No Current appetite: Fair Recent wt change: N/A %wt change: N/A Vitamin/Supplement use: Daily vitamin, Vit B1, Vit B12 Special diet at home: Regular Physical activity:N/A Nutrition education given (specify specific nutrition education and handout given): [facility] [place] Sobriety Nutrition Therapy handout provided, reviewed w/ pt, and discussed how to follow a dietary meal plan for managing alcohol use. Discussed specific foods/items to avoid (i.e. caffeine, high-fat foods, foods containing alcohol, drinking accessories) and foods/items to increase (i.e. whole grains, healthy snacks, support group(s), cooking classes). Food-drug interactions? Education given? None given at this time. Estimated Nutritional Needs Based on current body weight (91 kg) Energy: 6170-5395 kcal/day (25-30 kcal/kg for maintenance) Protein: 91-109 g/day (1.0-1.2 g/kg) Fluid: 9950-4752 mL/day (1 mL/kcal) or per MD Nutrition Diagnosis: 1. Inadequate energy intake r/t poor appetite/oral intake AEB poor PO <25%. 2. Altered nutrition-related lab values r/t alcohol abuse, seizure, Dx acute EtOH withdrawal AEB BG 125, AST 51, ALT 72. Intervention: 1. Continue current plan of care. Monitor/Evaluate: Goal: PO intake at least 75% of estimated needs Monitor: PO intake, Labs, GI function F/U in 7 days as low risk 01/10.
--- NOTE | 2019-01-03 13:47 | NUR ---
Receommendations: 1. Continue current diet order: Regular
--- NOTE | 2019-01-03 14:55 | NUR ---
PT IS SITTING AT THE SIDE OF THE BED EATING AND WATCHING TV. PT LOOKS TO BE IN NO ACUTE DISTRESS AND DENIES ANY PAIN AT THIS TIME. SEIZURE PRECAURIONS IMPLEMENTED. IV SITE PATENT WITH NO SIGNS OF ERYTHEMA OR SWELLING WITH IV H/L. RESPIRATIONS EVEN AND UNLABORED ON ROOM AIR. BED IN LOWEST POSITION, CALL LIGHT WITHIN REACH. WILL CONTINUE TO MONITOR.
[2019-01-03 16:33] VITALS: BP 95/47
--- NOTE | 2019-01-03 18:52 | NUR ---
PT IS LAYING DOWN IN BED WITH HOB UP RESTING WITH EYES CLOSD. PT LOOKS TO BE IN NO ACUTE DISTRESS AT THIS TIME. IV SITE PATENT WITH NO SIGNS OF ERYTHEMA OR SWELLING WITH IV H/L. RESPIRATIONS EVEN AND UNLABORED ON ROOM AIR. DOBSON CATHETER PRESENT DRAINING CLEAR YELLOW URINE, DOBSON CARE PROVIDED. BED IN LOWEST POSITION, CALL LIGHT WITHIN REACH. WILL ENDORSE TO ONCOMING SHIFT.
--- NOTE | 2019-01-03 19:53 | NUR ---
PT. RECIEVED FROM DAY NURSE. PT RESTING AT SIDE OF BED, EATING DINNER. NO COMPLAINTS OF PAIN AT THIS TIME. BREATH SOUNDS CLEAR BILATERALLY. NO SOB ON RA. DOBSON INTACT, AND DRAINING. SLIGHT ERYTHEMA AND FLAKEY SKIN IN TR[place] AREA, NO COMPLAINTS OF PAIN OR ITCHING. BLANCHABLE ERYTHEMA IN BUTTOCKS AREA. CALL LIGHT WITHIN REACH. BED AT LOWEST POSITION. WILL CONTINUE TO MONITOR.
[2019-01-03 20:56] VITALS: BP 91/60
--- NOTE | 2019-01-03 22:37 | NUR ---
I HAVE REVIEWED THE DATA COLLECTION BY RN: CATRACHO WILLAMS ENTERED ON 01/03/19 I CONCUR WITH THE DATA AND ANY EXCEPTIONS OR COMMENTS ARE LISTED BELOW:
--- NOTE | 2019-01-04 00:08 | NUR ---
PT RESTING IN BED. NO S/S OF PAIN OR DISTRESS. NO SOB OF RA. CALL LIGHT WITHIN REACH. BED AT LOWEST POSITION. WILL CONTINUE TO MONITOR.
--- NOTE | 2019-01-04 01:51 | NUR ---
PT AWAKE AND WATCHING TV. C/O NOT BEING ABLE TO SLEEP. REQUESTED SLEEP AID FROM DR. HERNÁNDEZ [facility]IA [facility].
[2019-01-04 05:46] VITALS: BP 99/60
--- NOTE | 2019-01-04 05:57 | NUR ---
PT RESTING IN BED WITH EYES CLOSED. NO S/S OF PAIN OR DISTRESS. BREATHING EVEN AND UNLABORED. DOBSON CARE PROVIDED. NO SIGNIFICANT CHANGES THIS SHIFT. CALL LIGHT WITHIN REACH. BED AT LOWEST POSITION. WILL ENDORSE TO DAY NURSE.
[2019-01-04 06:14] LABS: CALCIUM 9.8 mg/dL (8.5-10.1); CARBON DIOXIDE 25.6 mmol/L (21-32); CHLORIDE SERUM 105 mmol/L (98-107); CREATININE SERUM 0.6 mg/dL (0.7-1.3); GFR1 > 60 mL/min; GLUCOSE SERUM 84 mg/dL (74-106); MAGNESIUM 1.8 mg/dL (1.8-2.4); POTASSIUM SERUM 3.3 mmol/L (3.5-5.1); SODIUM SERUM 141 mmol/L (136-145)
[2019-01-04 06:26] LABS: PLATELET COUNT 190 x10^3mcL (130-400); RED CELL DISTRIBUTION WIDTH 13.8 % (11.5-14.5)
--- NOTE | 2019-01-04 07:15 | NUR ---
RECEIVED BEDSIDE REPORT FROM PATROL MAN NURSE AT THIS TIME. PATIENT RESTING COMFORTABLY IN BED. NO APPARENT DISTRESS OR DISCOMFORT NOTED. BREATHING EVEN AND UNLABORED. NO RESPIRATORY DISTRESS NOTED. DOBSON CATHETER IN PLACE DRAINING TO GRAVITY YELLOW URINE. PATIENT DENIES CHEST PAIN/PRESSURE AT THIS TIME. IV PATENT AND INTACT. ALL QUESTIONS AND CONCERNS ADDRESSED. ALL NEEDS ATTENDED TO. WILL CONTINUE TO MONITOR
[2019-01-04 07:55] VITALS: BP 112/74
--- NOTE | 2019-01-04 10:59 | NUR ---
ALL MORNING MEDICATIONS ADMINISTERED. PATIENT TOLERATED WELL. NO APPARENT DISTRESS OR DISCOMFORT NOTED. NO ADVERSE EFFECTS NOTED. ALL NEEDS ATTENDED TO. WILL CONTINUE TO MONITOR
--- NOTE | 2019-01-04 11:15 | NUR ---
PATIENT BLOOD SUGAR 93 AT THIS TIME. NO INSULIN COVERAGE REQUIRED. ALL NEEDS ATTENDED TO. WILL CONTINUE TO MONITOR
[2019-01-04 11:34] LABS: BAND NEUTROPHIL 2 % (0-10); SEGMENTED NEUTROPHILS 58 % (37-75)
[2019-01-04 11:35] LABS: MONOCYTE 16 % (0-7); rbc morphology (normal/abnorm) NORMAL (NORMAL)
[2019-01-04 11:36] LABS: PLATELET MORPHOLOGY PLATELETS NORMAL
--- NOTE | 2019-01-04 13:26 | NUR ---
PATIENT SITTING UP ON SIDE OF BED EATING LUNCH AT THIS TIME. PATIENT TOLERATING DIET WELL. NO APPARENT DISTRESS AND DISCOMFORT NOTED. ALL NEEDS ATTENDED TO. WILL CONTINUE TO MONITOR
[2019-01-04 16:02] VITALS: BP 114/72
--- NOTE | 2019-01-04 16:14 | NUR ---
PATIENT C/O MILD DOBSON CATHETER PAIN. PATIENT MEDICATED WITH TYLENOL PRN. PATIENT TOLERATED WELL. NO ADVERSE EFFECTS NOTED. ALL NEEDS ATTENDED TO. WILL CONTINUE TO MONITOR
--- NOTE | 2019-01-04 18:00 | NUR ---
PATIENT SITTING UP ON SIDE OF BED EATING DINNER AT THIS TIME. PATIENT TOLERATING DIET WELL. NO APPARENT DISTRESS OR DISCOMFORT NOTED. ALL NEEDS ATTENDED TO. WILL CONTINUE TO MONITOR
--- NOTE | 2019-01-04 18:42 | NUR ---
PATIENT RESTING COMFORTABLY IN BED AT THIS TIME. NO APPARENT DISTRESS OR DISCOMFORT NOTED. DOBSON CATHETER IN PLACE DRAINING TO GRAVITY YELLOW URINE. DOBSON CARE PROVIDED. IV PATENT AND INTACT. ALL QUESTIONS AND CONCERNS ADDRESSED. ALL NEEDS ATTENDED TO. SAFETY PRECAUTIONS MAINTAINED. WILL ENDORSE ALL CARE TO CORPORATE LAW ASSISTANT NURSE
--- NOTE | 2019-01-04 19:26 | NUR ---
RECEIVED PATIENT SITTING AT BEDSIDE EATING DINNER WITH GOOD APPETITE. BREATHING EASY AND NONLABOR SATTING AT 99% RA. ABDOMEN ROUND AND NONTENDER WITH ACTIVE BS. IV TO RFA HEPLOCK FLUSHED WITH NS. WILL CONTINUE TO MONITOR. CALL LIGHT WITHINREACH. NO SIGN OF VISUAL HALLUCINATION NOTED.
[2019-01-04 21:19] VITALS: BP 98/53
--- NOTE | 2019-01-04 23:41 | NUR ---
APPEARS SLEEPING WITH EYES CLOSED BREATHING EASYA ND NONLABOR.
--- NOTE | 2019-01-05 05:02 | NUR ---
SLEPT AT LONG INTERVALS, NO SIGN OF DISTRESS AND NOINDICATION OF VISUAL HALLUCINATION NOTED. ALL NEEDS ATTENDED.
[2019-01-05 05:21] VITALS: BP 103/71
[2019-01-05 06:07] LABS: BASOPHIL % 1.1 % (0-2); PLATELET COUNT 242 x10^3mcL (130-400); RED CELL DISTRIBUTION WIDTH 13.8 % (11.5-14.5)
[2019-01-05 06:30] LABS: CARBON DIOXIDE 24.6 mmol/L (21-32); CHLORIDE SERUM 101 mmol/L (98-107); CREATININE SERUM 0.6 mg/dL (0.7-1.3); GFR1 > 60 mL/min; GLUCOSE SERUM 93 mg/dL (74-106); POTASSIUM SERUM 3.7 mmol/L (3.5-5.1); SODIUM SERUM 136 mmol/L (136-145)
--- NOTE | 2019-01-05 07:10 | NUR ---
PT RECIEVED RESTING IN BED WITH NO C/O PAIN, DISTRESS, OR SOB. A/O X4 WITH NO SCOTT OR DIZZINESS. DENIES ANY CP OR PRESSURE. LUNGS CTA. FLOEY CATHETER IN PLACE AND DRAINING YELLOW URINE. AMBULATORY. IV INTACT AND PATENT TO RFA WITH NO REDNESS OR INFLAMMATION. SAFETY PRECAUTIONS IN PLACE, CALL LIGHT WITHIN REACH, WILL MONITOR.
[2019-01-05] MEDS ORDERED: KETOCONAZOLE2% TOP (09:17)
[2019-01-05] MEDS ORDERED: METOPROLOL TART25 M1 PO (09:18)
[2019-01-05 09:44] VITALS: BP 113/62
--- NOTE | 2019-01-05 12:59 | NUR ---
DOBSON CATHETER REMOVED PER MD ORDER. NO DISTRESS OR BLOOD NOTED. PT TOLERATED WELL.
[2019-01-05 13:31] VITALS: BP 113/62
--- NOTE | 2019-01-05 14:07 | NUR ---
PT OK TO DISCHARGE PER MD ORDER. ALL DISCHARGE INSTRUCTIONS AND EDUCATION EXPLAINED TO PT. PT VERBALIZES UNDERSTANDING. UPON COMING INTO ROOM , IT WAS NOTED THAT PT REMOVED HIS IV BY HIMSELF WITHOUT NOTIFYING ME. SITE APPEARS CLEAR WITHOUT ANY CATHETER INSIDE. NO REDNESS OR INFLAMMATION NOTED. ID BANDS REMOVED FROM PT AND PT ESCORTED TO LOBBY BY SCREW SUPERVISOR. PT LEFT WITH NO DISTRESS, PAIN, OR SOB NOTED. ALL PERSONAL BELONGINGS IN HAND.
== END 2019-01-05 14:07 | disposition home health service (06) | DRG 816 ==
LOC: ED 23:33 → IC 12-28 02:23 → DU 12-28 02:23 → IC 12-29 03:48 → DU 01-01 17:18 → IC 01-01 17:49 → DU 01-01 18:00 → IC 01-01 18:09 → DU 01-01 18:14 → MU 01-02 13:29
PROVIDERS: Emergency Medicine; Internal Medicine; ADMIT General Practice
DX: T51.0X1A Toxic effect of ethanol, accidental (unintentional), initial encounter (principal); N17.0 Acute kidney failure with tubular necrosis; G92 Toxic encephalopathy; F10.221 Alcohol dependence with intoxication delirium; F10.231 Alcohol dependence with withdrawal delirium; R56.9 Unspecified convulsions; E83.42 Hypomagnesemia; Y90.0 Blood alcohol level of less than 20 mg/100 ml; I48.0 Paroxysmal atrial fibrillation; D69.6 Thrombocytopenia, unspecified; R74.0 Nonspecific elevation of levels of transaminase and lactic acid dehydrogenase [LDH]; E87.6 Hypokalemia; F17.210 Nicotine dependence, cigarettes, uncomplicated; E78.5 Hyperlipidemia, unspecified; I10 Essential (primary) hypertension; Z68.28 Body mass index [BMI] 28.0-28.9, adult; Z80.3 Family history of malignant neoplasm of breast; Y92.89 Other specified places as the place of occurrence of the external cause
CPT/HCPCS: 82962; 83880; 84439; 97116-GP; 97530-GP; G0378; G0480; J1630; J2060; J2405; J3475; J3480; J3490; J7030; J7042; Q0092

== ENCOUNTER 2019-01-28 18:40 | Emergency (ER) | payer OTHER ==
[~2019-01-28] VITALS: Ht 180.3 cm; Wt 86.2 kg
[~2019-01-28 18:40] MED LIST changes: +KETOCONAZOLE2% TOP; +METOPROLOL TART25 M1 PO
[2019-01-28 18:47] VITALS: Ht 180.3 cm; Wt 86.2 kg
[2019-01-28 20:05] LABS: CALCIUM 8.8 mg/dL (8.5-10.1); CARBON DIOXIDE 24.5 mmol/L (21-32); CHLORIDE SERUM 105 mmol/L (98-107); CREATININE SERUM 0.7 mg/dL (0.7-1.3); GFR1 > 60 mL/min; GLUCOSE SERUM 84 mg/dL (74-106); POTASSIUM SERUM 4.1 mmol/L (3.5-5.1); SODIUM SERUM 145 mmol/L (136-145)
[2019-01-28 20:09] LABS: ALBUMIN 4.1 g/dL (3.4-5.0); ALKALINE PHOSPHATASE 88 U/L (46-116); ALT/SGPT 101 U/L (16-63); AST/SGOT 127 U/L (15-37); BILIRUBIN TOTAL 0.25 mg/dL (0.20-1.00)
[2019-01-28 20:26] LABS: PLATELET COUNT 71 x10^3mcL (130-400); RED CELL DISTRIBUTION WIDTH 14.9 % (11.5-14.5)
[2019-01-28 20:38] LABS: BAND NEUTROPHIL 1 % (0-10); BASOPHIL 0 % (0-2); MONOCYTE 13 % (0-7); SEGMENTED NEUTROPHILS 32 % (37-75)
[2019-01-28 20:40] LABS: PLATELET MORPHOLOGY PLATELETS DECREASED; rbc morphology (normal/abnorm) ABNORMAL (NORMAL); target cell (codocyte) 1+; tear drop cell (dacryocyte) 1+
[2019-01-29 00:33] LABS: AMPHETAMINE QUAL UR NONE DETECTED (See below)
[2019-01-29 00:47] VITALS: BP 98/67
== END 2019-01-29 00:47 | disposition home or self-care (01) ==
LOC: ED 18:40
PROVIDERS: Specialist
DX: F10.129 Alcohol abuse with intoxication, unspecified (principal); I10 Essential (primary) hypertension
CPT/HCPCS: 36415; J7030

== ENCOUNTER 2019-01-31 11:28 | Emergency (ER) | payer OTHER ==
[~2019-01-31] VITALS: Ht 175.3 cm; Wt 86.6 kg
[2019-01-31 11:39] VITALS: Ht 175.3 cm; Wt 86.6 kg
[2019-01-31 14:44] LABS: CALCIUM 9.9 mg/dL (8.5-10.1); CHLORIDE SERUM 101 mmol/L (98-107); CREATININE SERUM 0.7 mg/dL (0.7-1.3); GFR1 > 60 mL/min; GLUCOSE SERUM 101 mg/dL (74-106); POTASSIUM SERUM 3.5 mmol/L (3.5-5.1); SODIUM SERUM 139 mmol/L (136-145)
[2019-01-31 14:48] LABS: ALKALINE PHOSPHATASE 82 U/L (46-116); ALT/SGPT 65 U/L (16-63); AST/SGOT 43 U/L (15-37); BASOPHIL % 0.5 % (0-2); BILIRUBIN TOTAL 0.9 mg/dL (0.20-1.00); PLATELET COUNT 107 x10^3mcL (130-400); RED CELL DISTRIBUTION WIDTH 14.7 % (11.5-14.5); TOTAL PROTEIN, SERUM 7.9 g/dL (6.4-8.2)
[2019-01-31 17:39] VITALS: BP 120/70
== END 2019-01-31 17:39 | disposition home or self-care (01) ==
LOC: ED 11:28
PROVIDERS: Emergency Medicine
DX: F41.9 Anxiety disorder, unspecified (principal); F10.20 Alcohol dependence, uncomplicated; I10 Essential (primary) hypertension
CPT/HCPCS: G0480; J2060; J7030

== ENCOUNTER 2019-03-14 16:41 | Emergency (ER) | payer OTHER ==
[~2019-03-14] VITALS: Ht 177.8 cm; Wt 90.7 kg
[2019-03-14 16:53] VITALS: Ht 177.8 cm; Wt 90.7 kg
[2019-03-14 17:43] LABS: BASOPHIL % 0.1 % (0-2); RED CELL DISTRIBUTION WIDTH 14.4 % (11.5-14.5)
[2019-03-14 17:44] LABS: PLATELET COUNT 116 x10^3mcL (130-400)
[2019-03-14 18:00] LABS: CALCIUM 8.8 mg/dL (8.5-10.1); CARBON DIOXIDE 14.4 mmol/L (21-32); CHLORIDE SERUM 96 mmol/L (98-107); CREATININE SERUM 0.8 mg/dL (0.7-1.3); GFR1 > 60 mL/min; GLUCOSE SERUM 100 mg/dL (74-106); POTASSIUM SERUM 4.1 mmol/L (3.5-5.1); SODIUM SERUM 138 mmol/L (136-145)
[2019-03-14 18:04] LABS: ALBUMIN 4.2 g/dL (3.4-5.0); ALKALINE PHOSPHATASE 73 U/L (46-116); ALT/SGPT 30 U/L (16-63); AST/SGOT 42 U/L (15-37); BILIRUBIN TOTAL 0.98 mg/dL (0.20-1.00); MAGNESIUM 1.7 mg/dL (1.8-2.4)
[2019-03-14 18:05] LABS: TOTAL PROTEIN, SERUM 8.4 g/dL (6.4-8.2)
[2019-03-14 21:26] VITALS: BP 128/90
== END 2019-03-14 21:26 | disposition home or self-care (01) ==
LOC: ED 16:41
PROVIDERS: Emergency Medicine
DX: F10.239 Alcohol dependence with withdrawal, unspecified (principal); E83.42 Hypomagnesemia; I10 Essential (primary) hypertension
CPT/HCPCS: G0480; J2060; J2405; J3411; J3475; J3490; J7030

== ENCOUNTER 2020-01-26 15:15 | Emergency (ER) | payer OTHER ==
[~2020-01-26] VITALS: Ht 182.9 cm; Wt 93.0 kg
[2020-01-26 15:16] VITALS: Ht 182.9 cm; Wt 93.0 kg
[2020-01-26 16:05] LABS: BASOPHIL % 0.7 % (0-2); RED CELL DISTRIBUTION WIDTH 13.7 % (11.5-14.5)
[2020-01-26 16:10] LABS: PLATELET COUNT 73 x10^3mcL (130-400)
[2020-01-26 16:13] LABS: CALCIUM 9.3 mg/dL (8.5-10.1); CARBON DIOXIDE 27.7 mmol/L (21-32); CHLORIDE SERUM 98 mmol/L (98-107); GFR1 > 60 mL/min; GLUCOSE SERUM 92 mg/dL (74-106); POTASSIUM SERUM 3.3 mmol/L (3.5-5.1); SODIUM SERUM 136 mmol/L (136-145)
[2020-01-26 16:18] LABS: ALBUMIN 3.8 g/dL (3.4-5.0); ALKALINE PHOSPHATASE 80 U/L (46-116); ALT/SGPT 67 U/L (16-63); AST/SGOT 54 U/L (15-37); BILIRUBIN TOTAL 0.8 mg/dL (0.20-1.00); TOTAL PROTEIN, SERUM 7.6 g/dL (6.4-8.2)
[2020-01-26 18:38] VITALS: BP 122/88
== END 2020-01-26 18:38 | disposition home or self-care (01) ==
LOC: ED 15:15
PROVIDERS: Emergency Medicine
DX: R56.9 Unspecified convulsions (principal); F17.210 Nicotine dependence, cigarettes, uncomplicated; F10.239 Alcohol dependence with withdrawal, unspecified; I10 Essential (primary) hypertension
CPT/HCPCS: 99406; G0480; J2060; J3411; J3490; J7030

== ENCOUNTER 2020-03-19 18:52 | Emergency (ER) | payer OTHER, SELFPAY ==
[~2020-03-19] VITALS: Ht 177.8 cm; Wt 90.7 kg
[2020-03-19 18:53] VITALS: Ht 177.8 cm; Wt 90.7 kg
[2020-03-19 23:23] VITALS: BP 149/93
== END 2020-03-19 23:23 | disposition home or self-care (01) ==
LOC: ED 18:52
DX: S22.31XA Fracture of one rib, right side, initial encounter for closed fracture (principal); F17.210 Nicotine dependence, cigarettes, uncomplicated; I10 Essential (primary) hypertension; Z20.828 Contact with and (suspected) exposure to other viral communicable diseases; Z71.6 Tobacco abuse counseling; W06.XXXA Fall from bed, initial encounter; Y93.89 Activity, other specified; Y92.89 Other specified places as the place of occurrence of the external cause; Y99.8 Other external cause status
CPT/HCPCS: 99406; Q0092; U0003-CS

== ENCOUNTER 2020-03-25 10:43 | Emergency (ER) | payer OTHER ==
[~2020-03-25] VITALS: Ht 177.8 cm; Wt 93.4 kg
[2020-03-25 10:45] VITALS: Ht 177.8 cm; Wt 93.4 kg
[2020-03-25 12:10] VITALS: BP 130/88
== END 2020-03-25 12:10 | disposition home or self-care (01) ==
LOC: ED 10:43
DX: S22.31XD Fracture of one rib, right side, subsequent encounter for fracture with routine healing (principal); K70.9 Alcoholic liver disease, unspecified; I10 Essential (primary) hypertension; F12.20 Cannabis dependence, uncomplicated; F17.210 Nicotine dependence, cigarettes, uncomplicated; Z71.6 Tobacco abuse counseling; Z59.0 Homelessness; X58.XXXD Exposure to other specified factors, subsequent encounter

== ENCOUNTER 2020-05-13 06:47 | Emergency (ER) | payer OTHER ==
[~2020-05-13] VITALS: Ht 172.7 cm; Wt 83.9 kg
[2020-05-13 07:03] VITALS: Ht 172.7 cm; Wt 83.9 kg
[2020-05-13 08:14] LABS: CALCIUM 8.2 mg/dL (8.5-10.1); CARBON DIOXIDE 25.1 mmol/L (21-32); CHLORIDE SERUM 103 mmol/L (98-107); CREATININE SERUM 0.7 mg/dL (0.7-1.3); GFR1 > 60 mL/min; GLUCOSE SERUM 85 mg/dL (74-106); SODIUM SERUM 138 mmol/L (136-145)
[2020-05-13 08:19] LABS: ALBUMIN 3.7 g/dL (3.4-5.0); ALKALINE PHOSPHATASE 146 U/L (46-116); ALT/SGPT 55 U/L (16-63); AST/SGOT 136 U/L (15-37); BILIRUBIN TOTAL 0.57 mg/dL (0.20-1.00); TOTAL PROTEIN, SERUM 8.2 g/dL (6.4-8.2)
[2020-05-13 08:39] LABS: BASOPHIL % 1.2 % (0-2); RED CELL DISTRIBUTION WIDTH 14.1 % (11.5-14.5)
[2020-05-13 09:04] LABS: PLATELET COUNT 47 x10^3mcL (130-400)
[2020-05-13 09:49] VITALS: BP 132/74
== END 2020-05-13 09:30 | disposition home or self-care (01) ==
LOC: ED 06:47
PROVIDERS: Emergency Medicine
DX: I87.8 Other specified disorders of veins (principal); B35.3 Tinea pedis; I10 Essential (primary) hypertension
CPT/HCPCS: 83880

== ENCOUNTER 2020-06-01 21:40 | Emergency (ER) | payer OTHER ==
[~2020-06-01] VITALS: Ht 177.8 cm; Wt 88.5 kg
[2020-06-01 21:57] VITALS: BP 132/85; Ht 177.8 cm; Wt 88.5 kg
== END 2020-06-01 23:04 | disposition home or self-care (01) ==
LOC: ED 21:40
DX: M54.5 Low back pain (principal); M54.6 Pain in thoracic spine; I10 Essential (primary) hypertension; F17.210 Nicotine dependence, cigarettes, uncomplicated; Z71.6 Tobacco abuse counseling
CPT/HCPCS: 99406; J1885

== ENCOUNTER 2020-06-02 04:45 | Emergency (ER) | payer OTHER ==
[~2020-06-02] VITALS: Ht 177.8 cm; Wt 88.0 kg
[2020-06-02 05:02] VITALS: BP 118/90; Ht 177.8 cm; Wt 88.0 kg
== END 2020-06-02 07:27 | disposition home or self-care (01) ==
LOC: ED 04:45
DX: G89.29 Other chronic pain (principal); M54.5 Low back pain; I10 Essential (primary) hypertension

== ENCOUNTER 2020-07-08 16:11 | Emergency (ER) | payer OTHER ==
[~2020-07-08] VITALS: Ht 175.3 cm; Wt 88.0 kg
[2020-07-08 16:27] VITALS: Ht 175.3 cm; Wt 88.0 kg
[2020-07-08 17:41] VITALS: BP 132/84
== END 2020-07-08 17:41 | disposition home or self-care (01) ==
LOC: ED 16:11
DX: B35.3 Tinea pedis (principal); B35.1 Tinea unguium; I10 Essential (primary) hypertension
CPT/HCPCS: 82962